=== PATIENT | male | born 1960 | race Hispanic/Latino ===

== ENCOUNTER → 2023-10-28 | Day surgery (SDC) | payer BC ==
[~2023-10-28] MED LIST: DEXMEDETOMIDINE HCL 200 MCG/2 ML VIAL ONE; DIOVAN160 MG PO; EPHEDRINE SULFATE INJ 50 MG/ML VIAL ONE; GLUCAGON FOR INJ 1 MG VIAL ONE; LIDOCAINE HCL 2% LOCAL INJ 5 ML SDV VIAL INJ ONE; NIFEDIPINE ER30 M1 PO; PROPOFOL IV EMULSION 10 MG/ML 50 ML VIAL IV ONE
[2023-10-28] MEDS: LACTATED RINGER'S 1,000 ML ONE (11:19)
[2023-10-28 13:44] VITALS: TEMP 98.1
[2023-10-28 14:15] VITALS: BP 158/87; PULSE 118; RESP 16; O2SAT 96
== END | disposition home or self-care (01) ==
LOC: OR 10:55
PROVIDERS: ATTEND Internal Medicine Gastroenterology
DX: Z09 Encounter for follow-up examination after completed treatment for conditions other than malignant neoplasm (principal); K63.5 Polyp of colon; K57.30 Diverticulosis of large intestine without perforation or abscess without bleeding; K64.8 Other hemorrhoids; Z71.3 Dietary counseling and surveillance; I10 Essential (primary) hypertension; M54.9 Dorsalgia, unspecified; Z01.810 Encounter for preprocedural cardiovascular examination; Z79.899 Other long term (current) drug therapy; Z68.27 Body mass index [BMI] 27.0-27.9, adult
CPT/HCPCS: 45385; 93005; J7121; 45378; J1610; J2001